=== PATIENT | male | born 2000 | race Two or more races ===

== ENCOUNTER 2020-10-11 01:44 | Emergency (ER) | payer OTHER ==
[~2020-10-11] VITALS: Ht 175.3 cm; Wt 72.6 kg
--- NOTE | 2020-10-11 01:49 | NUR ---
CALLED FOR THE PATIENT IN WAITING ROOM FOR TRIAGE, NO ANSWER.
[2020-10-11 02:02] VITALS: BP 118/76
--- NOTE | 2020-10-11 02:16 | NUR ---
emt at bedside for ear irrigation
== END 2020-10-11 02:27 | disposition home or self-care (01) ==
LOC: ER 01:48
DX: H61.23 Impacted cerumen, bilateral (principal)